=== PATIENT | female | born 1950 ===

== ENCOUNTER 2017-11-21 08:30 | Inpatient (IN) | payer OTHER ==
[~2017-11-21] VITALS: Ht 165.1 cm; Wt 78.9 kg
[2017-11-21] MEDS ORDERED: LISINOPRIL10 MG PO (11:21)
[2017-11-21] MEDS ORDERED: HYDROCHLOROTHIA25 MG PO (11:22)
[2017-11-21] MEDS ORDERED: SYNTHROID112 MCG PO (11:22)
[2017-11-21] MEDS ORDERED: METFORMIN HCL500 MG PO (11:23)
[2017-11-21] MEDS ORDERED: NEURONTIN300 MG PO (11:24)
[2017-11-30] MEDS ORDERED: PERCOCET 5-3251 EACH PO (08:56)
[2017-11-30] MEDS ORDERED: CIPRO500 MG PO (08:56)
[2017-11-30] MEDS ORDERED: XARELTO10 MG PO (08:56)
== END 2017-11-30 11:23 | DRG 470 ==
LOC: SURH 11-27 05:15 → O/R 11-27 05:15 → SURH 11-27 08:30
PROVIDERS: Orthopaedic Surgery
PROC: 0QND0ZZ Release Right Patella, Open Approach (ICD-10-PCS; 2017-11-27)
PROC: 0SRC0J9 Replacement of Right Knee Joint with Synthetic Substitute, Cemented, Open Approach (ICD-10-PCS; principal; 2017-11-27 09:15)
DX: M17.11 Unilateral primary osteoarthritis, right knee (principal); D62 Acute posthemorrhagic anemia; M80.00XA Age-related osteoporosis with current pathological fracture, unspecified site, initial encounter for fracture; E11.9 Type 2 diabetes mellitus without complications; I10 Essential (primary) hypertension; S83.011A Lateral subluxation of right patella, initial encounter; M85.461 Solitary bone cyst, right tibia and fibula